=== PATIENT | female | born 1975 | race Caucasian/White ===

== ENCOUNTER → 2016-11-01 | Outpatient (CLI) | payer OTHER ==
[~2016-11-01] MED LIST: CALC500C70 PO; CETI10TA84 PO; CHOL100041 PO; CLON0.5T3 PO; CLX/20 PO; GADAVIST IV PRN; IBUP-1050 PO; LBT/300 PO; LBT200 PO; METH1LOZ PO
--- NOTE | 2016-11-01 09:22 | DIAGNOSTIC IMAGING REPORT ---
MRI OF THE BRAIN COMBO CLINICAL HISTORY: Visual disturbances. Anxiety. Depression. COMPARISON STUDY: No priors. TECHNIQUE: MRI of the brain was performed utilizing various T1 and T2-weighted sequences in the axial, sagittal, and coronal planes. Contrast-enhanced sequences were acquired following the administration of 11 cc of Gadavist. FINDINGS: Brain parenchyma: There is T2 signal abnormality identified throughout the parieto-occipital white matter. There is no significant mass effect, and no abnormal enhancement is seen on the postcontrast images. There is no hemorrhage or mass effect. There is no restricted diffusion typical for acute ischemia. Foci of T2 shine through are identified involving the left posterior periventricular white matter. No enhancing mass lesion is identified on the postcontrast images. No extra-axial fluid collection is seen. The cerebellar tonsils are normal in configuration. Ventricles, sulci, and cisterns: Normal in configuration. Pituitary and sella: Unremarkable. Intracranial vasculature: Normal flow voids are maintained at the skull base. Orbits: The bony orbits are grossly intact. Orbital contents are normal in appearance. Sinuses and mastoids: Trace mucosal thickening is seen within the maxillary antra. The remaining paranasal sinuses and the mastoid air cells are clear. Calvarium: Unremarkable. Cervical cord: Partially visualized cervical spinal cord is normal in morphology and signal intensity. IMPRESSION: 1. There is significant T2 signal abnormality identified involving the subcortical and periventricular white matter in the parieto-occipital region bilaterally. There is no associated abnormal enhancement or mass effect, and the appearance is highly concerning for the posterior reversible encephalopathy syndrome (PRES). Clinical correlation will be essential. 2. There is no hemorrhage, enhancing mass, or evidence of acute ischemia Electronically signed by: Stevenson Anderson M.D. 11/01/2016 9:20 AM Dictated Date/Time: 11/01/2016 9:11 AM
== END | disposition home or self-care (01) ==
LOC: C.MRIBC 07:21
PROVIDERS: ATTEND Family Medicine
DX: F41.3 Other mixed anxiety disorders (principal); R27.9 Unspecified lack of coordination; R25.1 Tremor, unspecified; H53.30 Unspecified disorder of binocular vision; E53.8 Deficiency of other specified B group vitamins; R94.02 Abnormal brain scan

== ENCOUNTER 2016-12-05 09:17 | Observation (INO) | payer OTHER ==
[~2016-12-05] VITALS: Ht 182.9 cm; Wt 113.6 kg
[~2016-12-05 09:17] MED LIST changes: -CALC500C70 PO; -CHOL100041 PO; -CLON0.5T3 PO; -CLX/20 PO; -GADAVIST IV PRN; -LBT200 PO
--- NOTE | 2016-12-05 09:56 | EMERGENCY ROOM VISIT NOTE ---
History Report prepared by Amado: Fernando Snow Under the Supervision of: Dr. Frank Fernando D.O. First contact with patient: 09:45 Chief Complaint: WEAKNESS Stated Complaint: DIFFICULTY WALKING Nursing Triage Summary: Bilateral leg weakness, difficulty ambulating, blurred vision. States sees a neurologist for the symptoms, but they are getting worse, was told to come to the ER by her phys. History of Present Illness The patient is a 41 year old female who presents to the Emergency Room with complaints of worsening neuro symptoms that started 4 months ago. She says that she was told by Dr. Patino (her primary care physician) to come to the ER if her condition worsened. She had an MRI 3 weeks ago, and has a neurology appointment scheduled on December 20. She was told that she would have a neurology consult here. The patient says that her main complaint is worsening weakness, which is worse on her right side. She says that her right foot drags. The patient says that she cannot walk well, read, write, or drive. She states that she could barely walk to the car this morning, and it took 2 people to help her get to the car. The patient's mother says that the patient has been walking on the outside edges of her feet, and the patient's veneer stapler strength is gone. The patient also notes that she has been having vision difficulties. She had symptoms like this in the past, and it was discovered that she had a B12 deficiency. Her symptoms last time did not progress this fast. Her recent B12 check was normal. She also takes a vitamin D supplement. The patient denies any numbness, headaches, neck stiffness, chest pain, or shortness of breath. She takes Labetalol, Clonazepam, and Celexa daily. The patient has no history of heart murmurs or thyroid issues. Source of History: patient, parent Onset: 4 months ago Position: other (global - weakness) Symptom Intensity: can hardly walk Timing: worsening Associated Symptoms: No SOB, No chest pain, No headache, No neck pain (or stiffness), No numbness Review of Systems See HPI for pertinent positives & negatives. A total of 10 systems reviewed and were otherwise negative. Past Medical & Surgical Medical Problems: (1) Essential (Primary) Hypertension (2) Reflux Esophagitis Surgical Problems: (1) History of gastric bypass Family History FH: cancer FH: diabetes mellitus FH: gallbladder disease FH: heart disease FH: hypertension Social History Smoking Status: Never Smoker Alcohol Use: occasionally Marital Status: Occupation Status: employed Current/Historical Medications Scheduled Calcium/Vitamin D (Os-Philipp 500 Plus D), 1 TAB PO DAILY Cholecalciferol (D 1000), 1,000 UNITS PO DAILY Citalopram (Citalopram Hydrobromide), 20 MG PO HS Clonazepam (Klonopin), 0.25 MG PO TID Ibuprofen (Advil), 400 MG PO UD Labetalol HCl (Labetalol HCl), 200 MG PO BID Methylcobalamin (Methyl B-12), 2,500 MCG PO DAILY Allergies Coded Allergies: Clarithromycin (Verified Allergy, Unknown, dental pain, 12/05/16) Cyclobenzaprine (Unverified Allergy, Unknown, heart issue, 12/05/16) Penicillins (Verified Allergy, Unknown, rash, 12/05/16) Sulfa Antibiotics (Verified Allergy, Unknown, rash, 12/05/16) Tramadol (Unverified Allergy, Unknown, heart stopped, 12/05/16) Physical Exam Vital Signs Date Time Temp Pulse Resp B/P Pulse Ox O2 Delivery O2 Flow Rate FiO2 12/05/16 11:14 56 16 168/104 98 Room Air 12/05/16 11:10 98 Room Air 12/05/16 10:31 67 12/05/16 09:20 36.6 85 18 136/99 96 Room Air Physical Exam GENERAL: Patient is awake, alert, and in no acute distress. Patient is resting comfortably and showing no signs of anxiety EYES: The conjunctivae are clear. The pupils are dilated but reactive to light bilaterally. EOMI. No ptosis with prolonged upward gaze. EARS, NOSE, MOUTH AND THROAT: The nose is without any evidence of any deformity. Mucous membranes are moist tongue is midline NECK: The neck is nontender and supple. RESPIRATORY: Normal respiratory effort is noted there is no evidence of wheezing rhonchi or rales CARDIOVASCULAR: Regular rate and rhythm noted, systolic murmur suggested on auscultation. GASTROINTESTINAL: The abdomen is soft. Bowel sounds are present in all quadrants. Abdomen is nontender MUSCULOSKELETAL/EXTREMITIES: There is no evidence of gross deformity full range of motion is noted in the hips and shoulders SKIN: There is no obvious evidence of any rash. There are no petechiae, pallor or cyanosis noted. NEUROLOGIC: Patient is awake alert and oriented x3. Patellar tendon reflexes 2 + bilaterally, veneer stapler strength diminished bilaterally. No drift in upper extremity but patient has splaying and extension of fingers noted. Slight drift in right lower extremity with inward turning of right foot, similar finding noted in left foot but not to same degree. Medical Decision & Procedures ER Provider Diagnostic Interpretation: X-ray results as stated below per interpretation by me and the radiologist. CHEST ONE VIEW PORTABLE CLINICAL HISTORY: ABDOMINAL PAIN/GI nausea COMPARISON STUDY: 06/01/2015 FINDINGS: The bones soft tissues and hemidiaphragms are normal. The cardiomediastinal silhouette is normal. The lungs are clear. The pulmonary vasculature is normal. IMPRESSION: Negative chest. Electronically signed by: Bhaskar Matson M.D. 12/05/2016 10:09 AM Dictated Date/Time: 12/05/2016 10:09 AM Laboratory Results 12/05/16 10:05 Red Blood Count 3.33, Mean Corpuscular Volume 106.3, Mean Corpuscular Hemoglobin 37.8, Mean Corpuscular Hemoglobin Concent 35.6, Mean Platelet Volume 9.3, Neutrophils (%) (Auto) 74.8, Lymphocytes (%) (Auto) 15.9, Monocytes (%) ( Auto) 6.4, Eosinophils (%) (Auto) 2.5, Basophils (%) (Auto) 0.4, Neutrophils # ( Auto) 3.87, Lymphocytes # (Auto) 0.82, Monocytes # (Auto) 0.33, Eosinophils # ( Auto) 0.13, Basophils # (Auto) 0.02 12/05/16 10:05 Test 12/05/16 10:05 12/05/16 10:50 12/05/16 12:30 White Blood Count 5.17 K/uL (4.8-10.8) Red Blood Count 3.33 M/uL (4.2-5.4) Hemoglobin 12.6 g/dL (12.0-16.0) Hematocrit 35.4 % (37-47) Mean Corpuscular Volume 106.3 fL (80-100) Mean Corpuscular Hemoglobin 37.8 pg (25-34) Mean Corpuscular Hemoglobin Concent 35.6 g/dl (32-36) Platelet Count 200 K/uL (130-400) Mean Platelet Volume 9.3 fL (7.4-10.4) Neutrophils (%) (Auto) 74.8 % Lymphocytes (%) (Auto) 15.9 % Monocytes (%) (Auto) 6.4 % Eosinophils (%) (Auto) 2.5 % Basophils (%) (Auto) 0.4 % Neutrophils # (Auto) 3.87 K/uL (1.4-6.5) Lymphocytes # (Auto) 0.82 K/uL (1.2-3.4) Monocytes # (Auto) 0.33 K/uL (0.11-0.59) Eosinophils # (Auto) 0.13 K/uL (0-0.5) Basophils # (Auto) 0.02 K/uL (0-0.2) RDW Standard Deviation 45.4 fL (36.4-46.3) RDW Coefficient of Variation 11.7 % (11.5-14.5) Immature Granulocyte % (Auto) 0.0 % Immature Granulocyte # (Auto) 0.00 K/uL (0.00-0.02) Anion Gap 8.0 mmol/L (3-11) Estimated GFR () 98.6 Estimated GFR (Non- 85.1 BUN/Creatinine Ratio 7.4 (10-20) Calcium Level 9.1 mg/dl (8.5-10.1) Total Bilirubin 1.5 mg/dl (0.2-1) Direct Bilirubin 0.7 mg/dl (0-0.2) Aspartate Amino Transf (AST/SGOT) 106 U/L (15-37) Alanine Aminotransferase (ALT/SGPT) 88 U/L (12-78) Alkaline Phosphatase 139 U/L (45-117) Troponin I < 0.015 ng/ml (0-0.045) Total Protein 7.0 gm/dl (6.4-8.2) Albumin 3.6 gm/dl (3.4-5.0) Lipase 78 U/L (73-393) Thyroid Stimulating Hormone (TSH) 2.680 uIu/ml (0.300-4.500) Free Thyroxine 1.20 ng/dl (0.80-1.60) Human Chorionic Gonadotropin, Qual NEG (NEG) Random Cortisol 18.66 mcg/dl Erythrocyte Sedimentation Rate 24 mm/hr (0-21) Prothrombin Time 11.4 SECONDS (9.0-12.0) Prothromb Time International Ratio 1.1 (0.9-1.1) Activated Partial Thromboplast Time 26.1 SECONDS (21.0-31.0) Partial Thromboplastin Ratio 1.0 C-Reactive Protein 0.33 mg/dl (0-0.29) Lyme Disease IgG Antibody NEG (NEG) Lyme Disease IgM Antibody NEG (NEG) Urine Color YELLOW Urine Appearance CLEAR (CLEAR) Urine pH 6.0 (4.5-7.5) Urine Specific Bland 1.010 (1.000-1.030) Urine Protein NEG (NEG) Urine Glucose (UA) NEG (NEG) Urine Ketones NEG (NEG) Urine Occult Blood NEG (NEG) Urine Nitrite NEG (NEG) Urine Bilirubin NEG (NEG) Urine Urobilinogen NEG (NEG) Urine Leukocyte Esterase MODERATE (NEG) Urine WBC (Auto) 5-10 /hpf (0-5) Urine RBC (Auto) 0-4 /hpf (0-4) Urine Hyaline Casts (Auto) 1-5 /lpf (0-5) Urine Epithelial Cells (Auto) >30 /lpf (0-5) Urine Bacteria (Auto) 1+ (NEG) Laboratory results per my review. Procedure Central Venous Catheter Indication: Sepsis. Catheter type: Triple lumen. Location: Left femoral vein. Verbal consent was obtained after the risks and benefits were explained, including but not limited to pneumothorax, hemothorax, vessel injury, bleeding, scarring, infection, pain, and bone/joint/nerve damage. At this time, the risks of the procedure are less than the risks of NOT performing the procedure. A time out was taken and the correct patient and site identified. The patient was placed in the supine position and the skin was prepped in the standard fashion with chlorhexidine and full sterile drapes applied. The proper landmarks were identified with ultrasound, anesthetized with 1% lidocaine without epinephrine, and the needle was inserted through the skin in the standard fashion. The needle was carefully advanced into blood vessel lumen under ultrasound guidance. The guidewire was placed uneventfully. The vessel is dilated and the catheter was placed. It was sutured into position. There was good blood return from all ports. The patient tolerated the procedure well and there were no complications. Post procedure x-ray was normal. ECG Indication: weakness Rate (beats per minute): 75 Rhythm: normal sinus Findings: no ectopy, other (no acute ST segment abnormalities) Comparison ECG Date: no prior available ED Course 0947: The patient was evaluated in room B5. A complete history and physical examination were performed. 1004: I discussed the patient with Dr. Marion ADAMSON neurology. 1020: I reevaluated the patient and she is resting. The patient verbally expressed understanding and agreement with the treatment plan. The patient will be evaluated for further treatment. 1036: I discussed the patient's case with Dr. Tony ADAMSON household appliance repairer. The patient will be evaluated for further management. Medical Decision Prior records/ancillary studies reviewed and summarized above. Nursing notes reviewed. Additional history obtained from family. Differential diagnosis: Etiologies such as metabolic, infection, hypo/hyperglycemia, electrolyte abnormalities, cardiac sources, intracerebral event, toxicologic, neurologic, as well as others were entertained. The patient is a 41-year-old female who presented to the emergency department for an evaluation of worsening neurologic problems. The patient was seen by her primary care physician for symptoms which have been ongoing for approximately 4 months. The patient had an MRI in October which was abnormal. The patient was set up with an appointment with neurology with the appointment was not until December and the patient was told if symptoms started to worsen she should go to the emergency department. The patient was starting to have severe symptoms including ambulatory dysfunction. Her mother states that she's been unable to ambulate without assistance over the last 24 hours. The patient's physical exam was mixed in that she had signs of muscle weakness which appeared to be distally in her upper as well as lower extremities. She had normal patellar tendon reflexes. She had no headache but her MRI the brain was questionable for PRES. I'm unsure if this fits with the patient's overall clinical picture. Her blood pressure was normal when she does not have a headache. I discussed this case with the patient's neurologist that she was scheduled to follow-up with. He is very concerned given the patient's MRI and physical exam findings and feels that she may need further workup and recommends inpatient evaluation. I discussed this case with the on-call [facility] hospitalist group. They have agreed to evaluate the patient in the emergency department for further management and disposition. Consults Time Called: 1000 Consulting Physician: Dr. Marion ADAMSON neurology Returned Call: [phone] I discussed the patient with Dr. Marion ADAMSON neurology. Additional Consults: Time Called: 1030 Consulted Physician: Dr. Tony ADAMSON household appliance repairer Returned Call: [phone] Additional Comments: I discussed the patient's case with Dr. Tony ADAMSON household appliance repairer. The patient will be evaluated for further management. Impression Primary Impression: Weakness Additional Impressions: Ambulatory dysfunction Abnormal MRI Scribe Attestation The scribe's documentation has been prepared under my direction and personally reviewed by me in its entirety. I confirm that the note above accurately reflects all work, treatment, procedures, and medical decision making performed by me. Departure Information Dispostion Being Evaluated By Hospitalist Referrals Frank Patino M.D. (PCP) Patient Instructions My [facility] Problem Qualifiers
--- NOTE | 2016-12-05 10:11 | DIAGNOSTIC IMAGING REPORT ---
CHEST ONE VIEW PORTABLE CLINICAL HISTORY: ABDOMINAL PAIN/GI nausea COMPARISON STUDY: 06/01/2015 FINDINGS: The bones soft tissues and hemidiaphragms are normal. The cardiomediastinal silhouette is normal. The lungs are clear. The pulmonary vasculature is normal. IMPRESSION: Negative chest. Electronically signed by: Bhaskar Matson M.D. 12/05/2016 10:09 AM Dictated Date/Time: 12/05/2016 10:09 AM
[2016-12-05 10:22] LABS: BASO % 0.4 %; BASO ABS # 0.02 K/uL (0-0.2); COMPLETE YES; EOS % 2.5 %; HEMATOCRIT 35.4 % (37-47); LYMPH % 15.9 %; LYMPH ABS # 0.82 K/uL (1.2-3.4); MEAN CELL VOLUME 106.3 fL (80-100); MEAN CORPUSCULAR HEMOGLOBIN 37.8 pg (25-34); MEAN CORPUSCULAR HGB CONC 35.6 g/dl (32-36); MEAN PLATELET VOLUME 9.3 fL (7.4-10.4); MONO % 6.4 %; NEUT % 74.8 %; PLATELET COUNT 200 K/uL (130-400); RED BLOOD COUNT 3.33 M/uL (4.2-5.4); WHITE BLOOD COUNT 5.17 K/uL (4.8-10.8)
[2016-12-05] MEDS ORDERED: CLX/20 PO (10:22)
[2016-12-05] MEDS ORDERED: CALC500C70 PO (10:22)
[2016-12-05] MEDS ORDERED: CHOL100041 PO (10:22)
[2016-12-05] MEDS ORDERED: LBT200 PO (10:22)
[2016-12-05] MEDS ORDERED: CLON0.5T3 PO (10:22)
[2016-12-05 10:40] LABS: ALT/SGPT 88 U/L (12-78); AST/SGOT 106 U/L (15-37); BLOOD UREA NITROGEN 6 mg/dl (7-18); BUN/CREATININE RATIO 7.4 (10-20); CALCIUM 9.1 mg/dl (8.5-10.1); CARBON DIOXIDE 26 mmol/L (21-32); CHLORIDE 103 mmol/L (98-107); CREATININE 0.86 mg/dl (0.60-1.20); GLUCOSE 102 mg/dl (70-99); POTASSIUM 4.3 mmol/L (3.5-5.1); SODIUM 137 mmol/L (136-145)
[2016-12-05 10:42] LABS: PREG INTERNAL NEGATIVE QC NEG CLEAR BACKGROUND; PREG INTERNAL POSITIVE QC POS CONTROL LINE
[2016-12-05 10:51] LABS: ALKALINE PHOSPHATASE 139 U/L (45-117)
[2016-12-05 11:06] LABS: INR 1.1 (0.9-1.1); PROTHROMBIN TIME (PATIENT) 11.4 SECONDS (9.0-12.0)
[2016-12-05 11:10] VITALS: O2SAT 98; Ht 182.9 cm; Wt 113.6 kg
--- NOTE | 2016-12-05 11:20 | History and Physical ---
History & Physical Date & Time of Service: December 05, 2016 at 11:18 Chief Complaint: Difficulty Walking Primary Care Physician: Frank Patino M.D. History of Present Illness Source: patient, parent 41F with a PMHx of HTN, Aortic Stenosis, Gastric Bypass, Depression, Anxiety, Vit B12 deficiency and previous cardiac arrest due to Flexeril and tramadol administration in [place] presents with an acute worsening over the past two days of gait instability, worsening of fine motor control in her hands, difficulty choosing her words, slow thinking and visions issues that has been present for the past [address] Patino as outpatient who ordered an MRI at [facility] on 11/01/2016. The MRI was suggestive of posterior reversible encephalopathy syndrome. She had an outpatient neurology follow up scheduled with Dr. Schultz on December 21. Pt has had similar symptoms to her current presentation approx 5 years ago in [place]. She saw 32 doctors for it and eventually her symptoms resolved with B12 administration. Her B12 was never low, but was on the low end of normal. Pt states that she needs to be in the high end of normal. Last B12 was measured to be >[address] Patino approx 7 weeks ago. She has received B12 shots from Dr. Patino recently. Pt reports 5 falls in the previous 2 days, she also needed help getting into the car today. Mom states that the pt's gait is now very odd, she walks on the outside of the toes. Pt denies any illnesses in June or May that preceded these symptoms. Pt is an [employer] student, according to mom has always been extremely intelligent. Pt was Cardiac Arrest History: Occured approximately 5 years ago in a cardiologists office. Performed CPR. Doctor was about to inform mom pt had before pt achieved ROSC. Pt was then thermally cooled. She underwent rehab for several months. According to mom pt returned to her baseline aside from her current episode. ROS: No fevers, no chills, no headache, +blurry vision +poor balance, no diarrhea, + lifetime history of intermittent vomiting. + finds it hard to read +difficulty dressing +hair loss PMHx: Gastric Bypass, HTN, Anxiety, Depression, Aortic Stenosis (Found by Dr. Centeno) PSHx: Gastric Bypass and Surgery for skin flap correction. Allergies: see above FamHx: No history of autoimmune processes other than sjogren's in a maternal aunt. SHx: Non smoker, no drugs, currently on disability. Family History FH: cancer FH: diabetes mellitus FH: gallbladder disease FH: heart disease FH: hypertension Social History Smoking Status: Never Smoker Marital Status: Occupational Status: disabled Multi-Drug Resistant Organisms History of MDRO: No Allergies Coded Allergies: Clarithromycin (Verified Allergy, Unknown, dental pain, 12/05/16) Cyclobenzaprine (Unverified Allergy, Unknown, heart issue, 12/05/16) Penicillins (Verified Allergy, Unknown, rash, 12/05/16) Sulfa Antibiotics (Verified Allergy, Unknown, rash, 12/05/16) Tramadol (Unverified Allergy, Unknown, heart stopped, 12/05/16) Home Medications Scheduled Calcium/Vitamin D (Os-Philipp 500 Plus D), 1 TAB PO DAILY Cholecalciferol (D 1000), 1,000 UNITS PO DAILY Citalopram (Citalopram Hydrobromide), 20 MG PO HS Clonazepam (Klonopin), 0.25 MG PO TID Ibuprofen (Advil), 400 MG PO UD Labetalol HCl (Labetalol HCl), 200 MG PO BID Methylcobalamin (Methyl B-12), 2,500 MCG PO DAILY Review of Systems Constitutional: No chills, No fever Respiratory: No dyspnea on exertion, No shortness of breath, No sputum, No wheezing Cardiovascular: No chest pain Genitourinary - Female: No dysuria, No urinary frequency, No urinary incontinence, No urinary retention, No urinary urgency Neurologic: + balance problems, + memory loss, No numbness/tingling Physical Exam Vital Signs Date Time Temp Pulse Resp B/P Pulse Ox O2 Delivery O2 Flow Rate FiO2 12/05/16 10:31 67 12/05/16 09:20 36.6 85 18 136/99 96 Room Air General Appearance: WD/WN, + obese Head: normocephalic, atraumatic Eyes: normal inspection, EOMI, + pertinent finding (Pt was able to read the words on the television screen without difficulty "FOOD" and "GCI") ENT: normal ENT inspection, + pertinent finding (uvula midline, tongue midline) Neck: supple, no adenopathy Respiratory/Chest: chest non-tender, lungs clear, normal breath sounds, no respiratory distress, no accessory muscle use Cardiovascular: regular rate, rhythm, no edema, no gallop, no JVD, normal peripheral pulses, + pertinent finding (systolic ejection murmur) Abdomen/GI: normal bowel sounds, non tender, soft, no organomegaly, no pulsatile mass Back: normal inspection, no CVA tenderness Extremities/Musculoskelatal: + pertinent finding (5/5 strength in the upper and lower extremities, sensation to light touch intact over the upper and lower extremities, pt's feet are inverted bilaterally at rest, pt is fanning her fingers inadvertantly at rest, she is able to close her fingers. ) Neurologic/Psych: facialist II-XII nml as tested, no motor/sensory deficits, alert, normal mood/affect, normal reflexes (2+ patellar relfexes bilaterally, POSITIVE babinski sign, ), oriented x 3 Diagnostics Laboratory Results Results Past 24 Hours Test 12/05/16 10:05 12/05/16 10:50 Range/Units White Blood Count 5.17 4.8-10.8 K/uL Red Blood Count 3.33 4.2-5.4 M/uL Hemoglobin 12.6 12.0-16.0 g/dL Hematocrit 35.4 37-47 % Mean Corpuscular Volume 106.3 80-100 fL Mean Corpuscular Hemoglobin 37.8 25-34 pg Mean Corpuscular Hemoglobin Concent 35.6 32-36 g/dl Platelet Count 200 130-400 K/uL Mean Platelet Volume 9.3 7.4-10.4 fL Neutrophils (%) (Auto) 74.8 % Lymphocytes (%) (Auto) 15.9 % Monocytes (%) (Auto) 6.4 % Eosinophils (%) (Auto) 2.5 % Basophils (%) (Auto) 0.4 % Neutrophils # (Auto) 3.87 1.4-6.5 K/uL Lymphocytes # (Auto) 0.82 1.2-3.4 K/uL Monocytes # (Auto) 0.33 0.11-0.59 K/uL Eosinophils # (Auto) 0.13 0-0.5 K/uL Basophils # (Auto) 0.02 0-0.2 K/uL RDW Standard Deviation 45.4 36.4-46.3 fL RDW Coefficient of Variation 11.7 11.5-14.5 % Immature Granulocyte % (Auto) 0.0 % Immature Granulocyte # (Auto) 0.00 0.00-0.02 K/uL Sodium Level 137 136-145 mmol/L Potassium Level 4.3 3.5-5.1 mmol/L Chloride Level 103 98-107 mmol/L Carbon Dioxide Level 26 21-32 mmol/L Anion Gap 8.0 3-11 mmol/L Blood Urea Nitrogen 6 7-18 mg/dl Creatinine 0.86 0.60-1.20 mg/dl Estimated GFR () 98.6 Estimated GFR (Non- 85.1 BUN/Creatinine Ratio 7.4 10-20 Random Glucose 102 70-99 mg/dl Calcium Level 9.1 8.5-10.1 mg/dl Total Bilirubin 1.5 0.2-1 mg/dl Direct Bilirubin 0.7 0-0.2 mg/dl Aspartate Amino Transf (AST/SGOT) 106 15-37 U/L Alanine Aminotransferase (ALT/SGPT) 88 12-78 U/L Alkaline Phosphatase 139 45-117 U/L Troponin I < 0.015 0-0.045 ng/ml Total Protein 7.0 6.4-8.2 gm/dl Albumin 3.6 3.4-5.0 gm/dl Lipase 78 73-393 U/L Thyroid Stimulating Hormone (TSH) 2.680 0.300-4.500 uIu/ml Free Thyroxine 1.20 0.80-1.60 ng/dl Human Chorionic Gonadotropin, Qual NEG NEG Random Cortisol 18.66 mcg/dl Prothrombin Time 11.4 9.0-12.0 SECONDS Prothromb Time International Ratio 1.1 0.9-1.1 Activated Partial Thromboplast Time 26.1 21.0-31.0 SECONDS Partial Thromboplastin Ratio 1.0 Diagnostic Radiology CHEST ONE VIEW PORTABLE CLINICAL HISTORY: ABDOMINAL PAIN/GI nausea COMPARISON STUDY: 06/01/2015 FINDINGS: The bones soft tissues and hemidiaphragms are normal. The cardiomediastinal silhouette is normal. The lungs are clear. The pulmonary vasculature is normal. IMPRESSION: Negative chest. EKG Normal sinus rhythm Cannot rule out Anterior infarct , age undetermined Abnormal ECG No previous ECGs available Impression Assessment and Plan 41F with a PMHx of B12 deficiency, gastric bypass, cardiac arrest ([place]) 2/ 2 to medications, HTN, Anxiety, Depression, Aortic Stenosis presents with an acute 2 day exacerbation of chronic non specific neurological symptoms including gait instability, poor fine motor control, decreased vision and difficulty choosing words. MRI in 11/01/2016 showed a concern for posterior reversible encephalopathy syndrome (PRES). She has had similar symptoms in the past that resolved with B12 administration despite her B12 level being low normal. She recently had B12 shots from Dr. Patino's office. Neurological Symptoms, PRES vs Encephalitis vs B12/Folate Deficiency vs Multiple Sclerosis - Non specific clinical picture. - Greatly appreciate neuro recommendations. - Will re-order B12 level, order Folate Level, RPR antibody, ESR, CRP and Lyme. - Consider B12 injection, Lumbar Puncture and re-imaging of brain. Macrocytosis MCV > 100 Vit B12 >2000 Folate is low, will replete with 2mg IV now and 1mg IV QAM. HTN - Continue with home med Labetalol Depression and Anxiety - continue with home med Celexa and Clonazepam. DVT Proph - SCDS until intracranial bleed is ruled out. (low prob) Dispo Med Surg, Full Diet, Full Code Resident Involvement: Resident Care Provided Care Provided: Adult Hospital Medicine History Resident Physician Supervision Note: I was present with Dr. Beckwith during the history and exam. I discussed the case with the resident and agree with the findings and plan as documented in the note. Any exceptions or clarifications are listed here. 41 y/o female h/o similar episode w/ B12 deficiency w/ h/o pernicious anemia and gastric bypass presents with progressive weakness. Diffusely, but mostly with coordinated movements - walking, small surface manipulation (texting), as well as reading. With the reading, feels like she can't focus on small print close up. For texting, has been using speech which has worked fine. Ambulation zaldivar, feels her ankles are turned in and cannot get her feet to stay underneath her. Symptoms progressively worsened the last few wks. No neuro work up as yet ( scheduled for December). Labs reviewed from 7 wks ago w/ nl TSH and high B12. Reports no SOB, CP, palpitations, lightheadedness, difficulty speaking or swallowing, sensation changes. General Appearance: WD/WN, no apparent distress Neck: non-tender, full range of motion, supple Respiratory: chest non-tender, lungs clear, normal breath sounds, no respiratory distress Cardiovascular: normal peripheral pulses, regular rate, rhythm, no edema, no murmur Gastrointestinal: normal bowel sounds, non tender, soft, no organomegaly Extremities: normal range of motion, non-tender, normal inspection, no pedal edema, other (weakness of right plantarflexion but not dorsiflexion. str 5/5 b/ l lumbercles, UE, proximal LE, face, neck) Neurologic/Psychiatric: alert, normal mood/affect, oriented x 3, abnormal facialist II-XII (unable to track smoothly or accomodate well. PERRL) Skin Characteristics: normal color, warm/dry, cyanosis Assessment/Plan 41 y/o female h/o B12 defncy, gastric bypass, [place] , HTN, anxiety/depression p/w acute on chronic worsening weakness Worsening weakness - multiple potential causes which are primarily central/ metabolic in nature w/ abn imaging recently (?stable from previous) - obtain outpatient records through PCP office re: previous scans, ideally w/ old scan for comparison - neurology consulted for patient, recommendations appreciated - lab studies as noted above - would strongly consider LP for further evaluation under IR guidance Macrocytic anemia - mild w/ nl B12 but with low folate at present - supplementation as noted HTN - continue labetolol, can add hydralazine PRN if needed Depression/anxiety - conitnue Celexa and clonazepam DVT PPX - SCD
[2016-12-05] MEDS ORDERED: MAGNESIUM HYDROXIDE SUSP 30 ML UDC PO PRN (12:15)
[2016-12-05] MEDS ORDERED: ACETAMINOPHEN 325 MG TAB PO PRN (12:15)
[2016-12-05] MEDS ORDERED: ALUMINUM/MAGNESIUM/SIMETH (MAALOX MAX) 30 ML UDC PO PRN (12:15)
[2016-12-05] MEDS ORDERED: ONDANSETRON INJ 2 MG/ML 2 ML VIAL IV PRN (12:15)
[2016-12-05] MEDS ORDERED: POLYETHYLENE (MIRALAX) 17 GM PACK PO PRN ×2 (12:15→12:45)
[2016-12-05 12:44] LABS: URINE APPEARANCE CLEAR (CLEAR); URINE BILIRUBIN NEG (NEG); URINE COLOR YELLOW; URINE EPITHELIAL CELL AUTO >30 /lpf (0-5); URINE NITRITE NEG (NEG); UROBILINOGEN NEG (NEG)
[2016-12-05 12:59] LABS: MANUAL MICROSCOPIC REQUIRED? NO; REVIEW REQ? NO
[2016-12-05 13:27] LABS: LYME DISEASE AB IGM NEG (NEG)
[2016-12-05 13:30] LABS: LYME DISEASE AB IGG NEG (NEG)
[2016-12-05] MEDS ORDERED: IV FLUIDS COMPLETED PRN (13:45)
[2016-12-05 14:56] VITALS: BP 123/86; PULSE 80; TEMP 36.7; O2SAT 97
[2016-12-05] MEDS ORDERED: FOLIC ACID IV ONE (16:15)
[2016-12-05] MEDS: CLONAZEPAM 0.5 MG TAB PO SCH ×2 (16:24→21:04)
[2016-12-05] MEDS: CITALOPRAM 20 MG TAB PO SCH (21:05)
[2016-12-05] MEDS: LABETALOL HCL 200 MG TAB PO SCH (21:06)
[2016-12-05 23:12] VITALS: BP 129/87; PULSE 74; TEMP 36.7; O2SAT 97
[2016-12-06] VITALS: O2SAT 98
--- NOTE | 2016-12-06 07:55 | Family Medicine Progress Note ---
Progress Note Date of Service December 06, 2016. Subjective Pt evaluation today including: conversation w/ patient, physical exam, chart review, lab review The patient was seen and examined at bedside. Pt reports sleeping well and feels much better. Denies having any pain. Still walking with difficulty. Eating and urinating well. Plan of care was described to the patient and all questions were answered. Constitutional: No chills, No fever Respiratory: No cough, No shortness of breath, No sputum, No wheezing Cardiovascular: No chest pain Abdomen: No diarrhea, No nausea, No pain, No vomiting Objective Physical Exam General Appearance: WD/WN, no apparent distress, + obese Neck: supple Respiratory/Chest: chest non-tender, lungs clear, normal breath sounds, no respiratory distress, no accessory muscle use Cardiovascular: regular rate, rhythm, no edema, no gallop, no JVD, no murmur Abdomen: normal bowel sounds, non tender, soft Extremities: normal range of motion, non-tender, normal inspection, no calf tenderness, + pertinent finding (ankles are still flexed on position. ) Neurologic/Psychiatric: normal mood/affect, oriented x 3, + pertinent finding ( pt reports feeling more 'oriented' than previous day, speech is normal, affect is good. Gait is slow, pt requires the assistance of a walker. ) Skin: no rash Assessment and Plan 41F with a PMHx of B12 deficiency, gastric bypass, cardiac arrest ([place] x 5 years ago) 2/2 to meds (flexiril, ?tramadol), HTN, Anxiety, Depression, Aortic Stenosis presents with an acute 2 day exacerbation of chronic non specific neurological symptoms including gait instability, poor fine motor control, decreased vision and difficulty choosing words. MRI in 11/01/2016 showed a concern for posterior reversible encephalopathy syndrome (PRES). She has had similar symptoms in the past that resolved with B12 administration despite her B12 level being low normal. She recently had B12 shots from Dr. Patino's office. Folic acid was found to be decreased, pt was given IV folic acid. Symptoms have improved. Neurological Symptoms, PRES vs Encephalitis vs B12/Folate Deficiency vs Multiple Sclerosis - Non specific clinical picture. - Neuro recommendations: Needs MRI Brain, cervical spine, thoracic spine, and lumbar spine, all w/wo contrast. May need another LP, will review imaging first. Will need outpatient EMG/NCS to look for associated neuropathy. Needs outpatient ophthalmology evaluation. Would also like her to be evaluated at [facility] or other tertiary center given the complexity of her case, can probably be arranged as an outpatient, unless her condition deteriorates, requiring transfer. - B12 >2000, Folate Level (low), RPR negative, ESR (24 - mildly elevated), CRP ( 0.33 - mildly elevated) and Lyme (negative). - c/w IV 1mg Folic Acid. - Pt consented to HIV add on test in AM. - Will order imaging as per neuro recs. - PT and OT recs appreciated - continued inpatient rehab, and outpatient depending on how pt does. Macrocytosis MCV > 100 Vit B12 >2000 Folate is low, will replete [id number] IV QAM daily. HTN - Continue with home med Labetalol Depression and Anxiety - continue with home med Celexa and Clonazepam. DVT Proph - SCDs until intracranial bleed is ruled out. (low prob) Dispo Med Surg, Full Diet, Full Code Resident Involvement: Resident Care Provided Care Provided: Adult Hospital Medicine History Resident Physician Supervision Note: I was present with Dr. Beckwith during the history and exam. I discussed the case with the resident and agree with the findings and plan as documented in the note. Any exceptions or clarifications are listed here. Pt feels more 'mentally clear' today after folate supplementation, but feels that her weakness is generally stable from previous. Has persistent aching pain of the right lateral ribs and left shoulder c/w site of impact. Reports no SOB, swallowing difficulty, sensation changes, incontinence. Reviewed potential causes of folate deficiency - h/o gastric bypass with small meals, though with variety and consumption of green leafy vegetables and sources rich in folate. No MVI supplementation of folate. h/o pernicious anemia w/ B12 supplementation. Denies any recent alcohol use (since being on clonazepam ), though was a regular [employer] drinker (1-3 'small' drinks 3-4 nights per week) previously. General Appearance: WD/WN, no apparent distress Respiratory: chest non-tender, lungs clear, normal breath sounds, no respiratory distress Cardiovascular: normal peripheral pulses, regular rate, rhythm, no edema, no murmur Gastrointestinal: normal bowel sounds, non tender, soft, no organomegaly Neurologic/Psychiatric: doughnut maker II-XII nml as tested, alert, normal mood/affect, oriented x 3, other (str 5/5 b/l LE including ankles and arms) Assessment/Plan 41 y/o female h/o B12 defncy, gastric bypass, [place] , HTN, anxiety/depression p/w acute on chronic worsening weakness Acute on chronic somatic weakness - neurology consulted, input appreciated - MRI spinal column, PT/OT consult, t/c LP if no overt cause on imaging Macrocytic anemia w/ folate deficiency - s/p supplementation - trend CBC qAM Transaminitis - stable from previous, h/o MONTERO w/ similar elevations previously. Trend CMP qAM HTN - continue labetolol, can add hydralazine PRN if needed Depression/anxiety - conitnue Celexa and clonazepam DVT PPX - SCD
[2016-12-06 07:58] VITALS: BP 146/97; PULSE 77; TEMP 36.8; O2SAT 95
[2016-12-06 08:00] VITALS: O2SAT 95
[2016-12-06] MEDS: CLONAZEPAM 0.5 MG TAB PO SCH ×3 (08:16→20:10)
[2016-12-06] MEDS: CHOLECALCIFEROL 1000 INTER.UNIT TAB PO SCH (08:18)
[2016-12-06] MEDS: CALCIUM 600MG + VIT D 400 IU TAB PO SCH (08:18)
[2016-12-06] MEDS: LABETALOL HCL 200 MG TAB PO SCH ×2 (08:18→20:10)
[2016-12-06] MEDS: FoLIC ACID INJ 1 MG in SYRINGE 9.8 ML IV SCH (08:18)
[2016-12-06] MEDS ORDERED: METHYLCOBALAMIN PO SCH (09:00)
[2016-12-06 09:23] LABS: HEMATOCRIT 38.6 % (37-47); MEAN CELL VOLUME 108.4 fL (80-100); MEAN CORPUSCULAR HEMOGLOBIN 38.2 pg (25-34); MEAN CORPUSCULAR HGB CONC 35.2 g/dl (32-36); MEAN PLATELET VOLUME 9.9 fL (7.4-10.4); PLATELET COUNT 226 K/uL (130-400); RED BLOOD COUNT 3.56 M/uL (4.2-5.4); WHITE BLOOD COUNT 5.18 K/uL (4.8-10.8)
[2016-12-06 09:47] LABS: BUN/CREATININE RATIO 8.1 (10-20); CREATININE 0.99 mg/dl (0.60-1.20); POTASSIUM 3.7 mmol/L (3.5-5.1)
[2016-12-06 09:50] LABS: ALB/GLOB RATIO 0.9 (0.9-2)
[2016-12-06 10:12] LABS: CALCIUM 9.4 mg/dl (8.5-10.1)
--- NOTE | 2016-12-06 10:46 | Neurology Consultation ---
Neurology Consultation Date of Consultation: December 06, 2016. Attending Physician: Amos Parry MD Primary Care Physician: Frank Patino M.D. Reason for Consultation: abnormal MRI, weakness History of Present Illness Source: patient, hospital records 41 year old female with a chief complaint of weakness, chronic issue, began about five years ago and is associated with bilateral vision loss, improved with vitamin B12 supplementation, however, began experiencing symptom recurrence about three months ago, getting progressively worse, difficulty walking, right leg feels weak. Also c/o poor concentration which has been getting progressively worse. PMH notable for pernicious anemia, liver failure, h/o gastric bypass, cardiac arrest, has had extensive evaluation at a hospital in [place], recalls having LP and neurologic assessment as well. Brain MRI images reviewed, reveals extensive, confluent, posterior, periventricular white matter increased T2/FLAIR signal. 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 drinks one gin and tonic per day Marital Status: Occupation Status: disabled Allergies Coded Allergies: Clarithromycin (Verified Allergy, Unknown, dental pain, 12/05/16) Cyclobenzaprine (Unverified Allergy, Unknown, heart issue, 12/05/16) Penicillins (Verified Allergy, Unknown, rash, 12/05/16) Sulfa Antibiotics (Verified Allergy, Unknown, rash, 12/05/16) Tramadol (Unverified Allergy, Unknown, heart stopped, 12/05/16) Current Inpatient Medications Current Inpatient Medications Medications (Trade) Dose Ordered Sig/Mariah Route Start Time Stop Time Status Last Admin Dose Admin Acetaminophen (Tylenol Tab) 650 mg Q4H PRN PO 12/05/16 12:15 01/04/17 12:14 Al Hydrox/Mg Hydrox/Simethicone (Maalox Max Susp) 15 ml Q4H PRN PO 12/05/16 12:15 01/04/17 12:14 Magnesium Hydroxide (Milk Of Magnesia Susp) 30 ml Q6H PRN PO 12/05/16 12:15 01/04/17 12:14 Ondansetron HCl (Zofran Inj) 4 mg Q6H PRN IV 12/05/16 12:15 01/04/17 12:14 Calcium/Vitamin D (Caltrate Plus Tab) 1 tab DAILY PO 12/06/16 09:00 01/05/17 08:59 12/06/16 08:18 1 TAB Citalopram Hydrobromide (celeXA TAB) 20 mg HS PO 12/05/16 21:00 01/04/17 20:59 12/05/16 21:05 20 MG Clonazepam (Klonopin Tab) 0.25 mg TID PO 12/05/16 14:00 01/04/17 13:59 12/06/16 08:16 0.25 MG Miscellaneous Information (Order Awaiting Action) 1 ea QS N/A 12/05/16 16:00 01/04/17 15:59 Labetalol HCl (Normodyne Tab) 200 mg BID PO 12/05/16 21:00 01/04/17 20:59 12/06/16 08:18 200 MG Cholecalciferol (Vitamin D Tab) 1,000 inter.unit DAILY PO 12/06/16 09:00 01/05/17 08:59 12/06/16 08:18 1,000 INTER.UNIT Polyethylene (Miralax Powder Packet) 17 gm DAILY PRN PO 12/05/16 12:45 01/04/17 12:14 Miscellaneous 1 ea 1 ea PRN PRN N/A 12/05/16 13:45 12/05/17 13:44 Folic Acid/Syringe (Folvite Inj/ Syringe) 10 ml @ 5 mls/min Q24H IV 12/06/16 09:00 01/05/17 08:59 12/06/16 08:18 5 MLS/MIN Review of Systems A full 10 point review of systems was obtained from this patient with pertinent positives and negatives described in the history of present illness. All other systems reviewed and are negative. Physical Exam Vital Signs (Past 24 Hrs): Date Time Temp Pulse Resp B/P Pulse Ox O2 Delivery O2 Flow Rate FiO2 12/06/16 07:58 36.8 77 20 146/97 95 Room Air 12/06/16 00:00 98 Room Air 12/05/16 23:12 36.7 74 18 129/87 97 Room Air 12/05/16 16:10 Room Air 12/05/16 14:56 36.7 80 18 123/86 97 Room Air 12/05/16 14:37 Room Air 12/05/16 11:14 56 16 168/104 98 Room Air 12/05/16 11:10 98 Room Air 12/05/16 10:31 67 The patient is a well-developed, middle-aged female, no acute distress. She is alert and oriented to person place and time. Attention and concentration normal. Recent and remote memory intact. She is able to name objects and repeat phrases. She read simple text without difficulty and correctly describes a complex picture. Gen. fund of knowledge and vocabulary normal. Visual christiansen full to confrontation. Visual acuity mildly diminished bilaterally. The pupils are equal, round, and react sluggishly to light. There appears to be bilateral afferent pupillary defects with swinging flashlight test. Eye movements normal. No nystagmus. No ophthalmoplegia. Facial sensation intact bilaterally. Facial strength normal and symmetric. Palate elevates to midline. Tongue protrudes to midline. Hearing intact to finger rub bilaterally. Shoulder shrug strength intact bilaterally. Sensation diminished vibration at the ankles. Light touch and temperature sensation intact. There is bilateral dysmetria with testing of finger to nose and heel to murillo although the right lower extremity is most prominently affected. Deep tendon reflexes are 2+ for the arms and left leg, 3+ at the right patella and right Achilles tendon. The right plantar response is upgoing. The left plantar response is downgoing. Ophthalmoscopic examination reveals bilateral optic nerve pallor with poor differentiation of the optic nerve head on the left. The posterior elements otherwise appear normal. No hemorrhages. Carotid pulses normal bilaterally, no bruits. Musculoskeletal examination reveals intact strength for all 4 limbs proximally and distally. Muscle tone is increased for the distal right lower limb with a tendency for the right foot and ankle to assume a dystonic inverted posture with movement. There is no atrophy. No tremors or fasciculations are observed. Gait and station appear ataxic. bilateral APD's, optic nerves pale, eye movements normal, no nystagmus, bilateral dysmetria with finger to nose, bilateral UE outward drift, right Babinski, mild dystonia right foot, gait ataxic Laboratory Results Past 24 Hours: 12/06/16 08:56 12/06/16 08:56 Test 12/05/16 10:50 12/05/16 12:30 12/05/16 14:10 12/06/16 08:56 Erythrocyte Sedimentation Rate 24 mm/hr (0-21) Prothrombin Time 11.4 SECONDS (9.0-12.0) Prothromb Time International Ratio 1.1 (0.9-1.1) Activated Partial Thromboplast Time 26.1 SECONDS (21.0-31.0) Partial Thromboplastin Ratio 1.0 C-Reactive Protein 0.33 mg/dl (0-0.29) Lyme Disease IgG Antibody NEG (NEG) Lyme Disease IgM Antibody NEG (NEG) Urine Color YELLOW Urine Appearance CLEAR (CLEAR) Urine pH 6.0 (4.5-7.5) Urine Specific [place] 1.010 (1.000-1.030) Urine Protein NEG (NEG) Urine Glucose (UA) NEG (NEG) Urine Ketones NEG (NEG) Urine Occult Blood NEG (NEG) Urine Nitrite NEG (NEG) Urine Bilirubin NEG (NEG) Urine Urobilinogen NEG (NEG) Urine Leukocyte Esterase MODERATE (NEG) Urine WBC (Auto) 5-10 /hpf (0-5) Urine RBC (Auto) 0-4 /hpf (0-4) Urine Hyaline Casts (Auto) 1-5 /lpf (0-5) Urine Epithelial Cells (Auto) >30 /lpf (0-5) Urine Bacteria (Auto) 1+ (NEG) Vitamin B12 Level > 2000 pg/mL (211-911) Folate 1.72 ng/mL (>5.38) Red Blood Count 3.56 M/uL (4.2-5.4) Mean Corpuscular Volume 108.4 fL (80-100) Mean Corpuscular Hemoglobin 38.2 pg (25-34) Mean Corpuscular Hemoglobin Concent 35.2 g/dl (32-36) RDW Standard Deviation 47.6 fL (36.4-46.3) RDW Coefficient of Variation 12.0 % (11.5-14.5) Mean Platelet Volume 9.9 fL (7.4-10.4) Anion Gap 8.0 mmol/L (3-11) Est Creatinine Clear Calc Drug Dose 107.6 ml/min Estimated GFR () 83.2 Estimated GFR (Non- 71.8 BUN/Creatinine Ratio 8.1 (10-20) Total Bilirubin 1.6 mg/dl (0.2-1) Aspartate Amino Transf (AST/SGOT) 105 U/L (15-37) Alanine Aminotransferase (ALT/SGPT) 89 U/L (12-78) Alkaline Phosphatase 152 U/L (45-117) Total Protein 7.7 gm/dl (6.4-8.2) Albumin 3.7 gm/dl (3.4-5.0) Globulin 4.0 gm/dl (2.5-4.0) Albumin/Globulin Ratio 0.9 (0.9-2) Impression 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 These abnormalities are likely chronic and relate to her reported history of pernicious anemia and cardiac arrest. Other nutrient deficiencies and mitochondrial disorders not excluded. May also have combined systems degeneration of the spinal cord. It is not clear to me why her condition has been deteriorating over the past few months, although she reports stopping B12 injection about one year ago and has been taking only oral supplementation. Moderate persistent alcohol consumption could be a factor as well. Plan Needs MRI Brain, cervical spine, thoracic spine, and lumbar spine, all w/wo contrast. May need another LP, will review imaging first. Will need outpatient EMG/NCS to look for associated neuropathy. Needs outpatient ophthalmology evaluation. Would also like her to be evaluated at [facility] or other tertiary center given the complexity of her case, can probably be arranged as an outpatient, unless her condition deteriorates, requiring transfer.
[2016-12-06 13:12] VITALS: BP 144/104
[2016-12-06] MEDS ORDERED: NURSING VERBAL MED ORDER ONE ×2 (14:15→19:00)
[2016-12-06] MEDS: IBUPROFEN 200 MG TAB PO PRN (14:28)
[2016-12-06 15:16] VITALS: BP 139/95; PULSE 71; TEMP 36.9; O2SAT 97
[2016-12-06] MEDS ORDERED: LORAZEPAM 0.5 MG TAB PO SCH (19:15)
[2016-12-06] MEDS: CITALOPRAM 20 MG TAB PO SCH (20:10)
[2016-12-06] MEDS ORDERED: GADAVIST IV PRN (23:00)
[2016-12-07 03:43] LABS: RAPID PLASMA REAGIN NONREACTIVE (NONREACT)
[2016-12-07 07:00] LABS: HEMATOCRIT 35.6 % (37-47); MEAN CELL VOLUME 108.2 fL (80-100); MEAN CORPUSCULAR HGB CONC 35.1 g/dl (32-36); MEAN PLATELET VOLUME 9.6 fL (7.4-10.4); PLATELET COUNT 208 K/uL (130-400); RED BLOOD COUNT 3.29 M/uL (4.2-5.4); WHITE BLOOD COUNT 6.28 K/uL (4.8-10.8)
[2016-12-07 07:34] LABS: BUN/CREATININE RATIO 10.9 (10-20); CALCIUM 8.9 mg/dl (8.5-10.1); CREATININE 0.89 mg/dl (0.60-1.20); POTASSIUM 4.1 mmol/L (3.5-5.1)
--- NOTE | 2016-12-07 07:37 | Family Medicine Progress Note ---
Progress Note Date of Service December 07, 2016. Subjective Pt evaluation today including: conversation w/ patient, physical exam, chart review, lab review The patient was seen and examined at bedside. PT states that she is feeling the same as the previous day - still cannot write and has severe gait imbalances. 5pm: Discussed transfer to [place] with patient. She was upset that she would have to go by ambulance. Her boyfriend was going to take her and they were planning on stopping at her mom because she has a shower with many handles and pt wanted a shower. Patient is resting comfortably in bed. Denies having any pain. Eating and urinating well. Plan of care was described to the patient and all questions were answered. Constitutional: + weakness, No chills, No fever, No sweats, No weight loss ENT: No hearing loss Respiratory: No cough, No shortness of breath, No sputum, No wheezing Cardiovascular: No chest pain Abdomen: No diarrhea, No nausea, No pain, No vomiting Objective Physical Exam General Appearance: WD/WN, + obese, + pertinent finding (similar exam to previous day) Eyes: EOMI Respiratory/Chest: chest non-tender, lungs clear, normal breath sounds, no respiratory distress, no accessory muscle use Cardiovascular: regular rate, rhythm, no edema, no gallop, no JVD, no murmur Abdomen: normal bowel sounds, non tender, soft, no organomegaly, no pulsatile mass Extremities: + pertinent finding (inward facing feet, slow gait, Romberg sign positive, Babinski sign positive bilaterally, equal sensation to light touch over the upper and lower extremities, 5/5 muscle power and symmetric in upper and lower extremities, uvula midline, should shrug intact, face is symmetric.) Neurologic/Psychiatric: alert, normal mood/affect, oriented x 3 Assessment and Plan 41F with a PMHx of B12 deficiency, gastric bypass, cardiac arrest ([place] x 5 years ago) 2/2 to meds (flexiril, ?tramadol), HTN, Anxiety, Depression, Aortic Stenosis presents with an acute 2 day exacerbation of chronic non specific neurological symptoms including gait instability, poor fine motor control, decreased vision and difficulty choosing words. MRI in 11/01/2016 showed a concern for posterior reversible encephalopathy syndrome (PRES). She has had similar symptoms in the past that resolved with B12 administration despite her B12 level being low normal. She recently had B12 shots from Dr. Patino's office. Folic acid was found to be decreased, pt was given IV folic acid. Symptoms are back to when the pt presented. Will transfer to [facility] for need for more acute care. Accepting Physician is Dr. Curile. We are arranging transfer tomorrow (Saturday) AM. Neurological Symptoms, PRES vs Encephalitis vs B12/Folate Deficiency - Non specific clinical picture. 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 Thoracic, lumbar and cervical spine: . No spinal cord abnormalities observed. Differentials: adult onset leukodystrophy her reported history of pernicious anemia may also be contributory as well as the reported history of cardiac arrest. Mitochondrial disorders remain in the differential. Will need outpatient EMG/NCS to look for associated neuropathy. Needs outpatient ophthalmology evaluation. Would also like her to be evaluated at [facility] or other tertiary center given the complexity of her case, can probably be arranged as an outpatient, unless her condition deteriorates, requiring transfer. - B12 >2000, Folate Level (low), RPR negative, ESR (24 - mildly elevated), CRP ( 0.33 - mildly elevated) and Lyme (negative), HIV (negative), Thiamine (pending) - c/w IV 1mg Folic Acid. - PT and OT recs appreciated - continued inpatient rehab, and outpatient depending on how pt does. Macrocytosis MCV > 100 Vit B12 >2000 Folate is low, will replete [id number] IV QAM daily. HTN - Continue with home med Labetalol Depression and Anxiety - continue with home med Celexa and Clonazepam. DVT Proph - SCDs until intracranial bleed is ruled out. (low prob) Dispo Med Surg, Full Diet, Full Code Resident Involvement: Resident Care Provided Care Provided: Adult Hospital Medicine History Resident Physician Supervision Note: I was present with Dr. Beckwith during the history and exam. I discussed the case with the resident and agree with the findings and plan as documented in the note. Any exceptions or clarifications are listed here. Pt reports improvement in general weakness and function today - was out of bed with walker last night to rest room without issue and looking forward to working with PT further. Some mild stiffness of the neck and aching at the impact sites from recent fall today which are stable/improved. Able to read somewhat better today than previous, which is a positive step. General Appearance: WD/WN, no apparent distress Neck: non-tender, full range of motion, supple Respiratory: chest non-tender, lungs clear, normal breath sounds, no respiratory distress Cardiovascular: normal peripheral pulses, regular rate, rhythm, no edema, no murmur Gastrointestinal: normal bowel sounds, non tender, soft, no organomegaly Neurologic/Psychiatric: dormitory maid II-XII nml as tested, alert, normal mood/affect, oriented x 3 Assessment/Plan 41 y/o female h/o B12 defncy, gastric bypass, CO , HTN, anxiety/depression p/w acute on chronic worsening weakness Acute on chronic somatic weakness - neurology consulted, input appreciated - MRI spinal column without overt pathology - PT/OT consult recommends acute rehab for improvement of independence. Neurology recommends evaluation by tertiary care - will discuss further re: inpatient transfer v. outpatient evaluation and f/u Macrocytic anemia w/ folate deficiency - daily supplementation - trend CBC qAM Transaminitis - stable from previous, h/o MONTERO w/ similar elevations previously. Trend CMP qAM HTN - w/ spike today - re-assess, continue labetolol, can add hydralazine PRN if needed Depression/anxiety - conitnue Celexa and clonazepam DVT PPX - SCD
[2016-12-07 07:43] VITALS: BP 147/99; PULSE 66; TEMP 36.8; O2SAT 97
[2016-12-07 08:00] VITALS: O2SAT 97
[2016-12-07] MEDS: FoLIC ACID INJ 1 MG in SYRINGE 9.8 ML IV SCH (08:02)
[2016-12-07] MEDS: CALCIUM 600MG + VIT D 400 IU TAB PO SCH (08:02)
[2016-12-07] MEDS: LABETALOL HCL 200 MG TAB PO SCH ×2 (08:02→21:41)
[2016-12-07] MEDS: CLONAZEPAM 0.5 MG TAB PO SCH ×3 (08:02→21:41)
[2016-12-07] MEDS: CHOLECALCIFEROL 1000 INTER.UNIT TAB PO SCH (08:03)
[2016-12-07] MEDS: IBUPROFEN 200 MG TAB PO PRN (08:04)
--- NOTE | 2016-12-07 08:20 | DIAGNOSTIC IMAGING REPORT ---
MRI CERVICAL SPINE COMBO CLINICAL HISTORY: Upper and lower extremity weakness. COMPARISON STUDY: No priors. TECHNIQUE: MRI of the cervical spine is performed utilizing various T1 and T2-weighted sequences in the axial and sagittal planes. Contrast-enhanced sequences are acquired following the IV administration of 11 cc of Gadavist. FINDINGS: Cervical spine: Vertebral body height and alignment are maintained throughout the cervical spine. Normal marrow signal intensity is preserved throughout the visualized bony structures. The atlantodental articulation appears maintained. The spinous processes are intact. No destructive osseous lesion is seen. Intervertebral discs: Minimal degenerative disc desiccation is observed. The disc spaces are preserved. Spinal cord: The cervical spinal cord is normal in morphology and signal intensity. No abnormal enhancement is identified on the postcontrast images. C2-C3: Unremarkable. C3-C4: Unremarkable. C4-C5: Unremarkable. C5-C6: Unremarkable. C6-C7: Unremarkable. C7-T1: Unremarkable. Soft tissues: The prevertebral and paraspinous soft tissues are within normal limits. Brain parenchyma: Partially imaged brain parenchyma at the skull base is normal in appearance. IMPRESSION: 1. The cervical spinal cord is normal in morphology and signal intensity. 2. There is no significant degenerative change seen. Dictated: 12/07/2016 7:37 AM Transcribed: 12/07/2016 8:20 AM [facility] Electronically signed by: Stevenson Anderson M.D. 12/07/2016 8:55 AM Dictated Date/Time: 12/07/2016 7:37 AM
--- NOTE | 2016-12-07 08:22 | DIAGNOSTIC IMAGING REPORT ---
MRI OF THE THORACIC SPINE COMBO CLINICAL HISTORY: Upper and lower extremity weakness. COMPARISON STUDY: No priors. TECHNIQUE: MRI of the thoracic spine is performed utilizing various T1 and T2-weighted sequences in the axial and sagittal planes. Contrast-enhanced sequences were acquired following the IV administration of 11 cc of Gadavist. FINDINGS: Vertebral body height and alignment are maintained throughout the thoracic spine. Normal marrow signal intensity is preserved throughout the visualized bony structures. No destructive osseous lesion is seen. The transverse and spinous processes appear intact. Intervertebral discs are normal in height and signal intensity. No large disc herniation is identified. Minimal disc bulge is seen at T11-T12 and T12-L1. The central canal is widely patent. There is no evidence of neural foraminal stenosis throughout the thoracic region. The thoracic spinal cord is normal in morphology and signal intensity. The conus medullaris terminates at the level of L1. No abnormal cord enhancement is seen on the postcontrast images. The paraspinous soft tissues are within normal limits. The lung parenchyma is grossly clear but not well assessed by MRI. IMPRESSION: Unremarkable contrast-enhanced MRI of the thoracic spine. Dictated: 12/07/2016 7:39 AM Transcribed: 12/07/2016 8:22 AM [facility] Electronically signed by: Stevenson Anderson M.D. 12/07/2016 8:32 AM Dictated Date/Time: 12/07/2016 7:39 AM
--- NOTE | 2016-12-07 08:31 | DIAGNOSTIC IMAGING REPORT ---
Brain MRI WITH AND WITHOUT CONTRAST HISTORY: Upper and lower extremity weakness R>L, upgoing plantars, b/l APD, brisk reflexes TECHNIQUE: Multiplanar multisequence MRI of the brain was performed both before and after the intravenous administration of contrast. COMPARISON STUDY: Brain MRI 11/01/2016. FINDINGS: No areas of definitive restricted diffusion to suggest acute infarction. Questionable areas of increased signal on the DWI sequences within the white matter of the posterior frontal lobes, parietal lobes and occipital lobes appears to represent T2 shine through. The white matter signal abnormality is not significantly changed compared to the prior study. The midline structures are intact. There is no mass, hematoma, or midline shift. The paranasal sinuses and mastoid air cells are clear. The major vascular flow-voids at the skull base are well-maintained. No abnormal enhancement. IMPRESSION: No change in the nearly symmetric white matter signal abnormality involving the bilateral posterior frontal lobes, parietal lobes, and occipital lobes. This is nonspecific but could be seen in the setting of a demyelinating disease such as multiple sclerosis. Additional leukodystrophies must be considered including adrenoleukodystrophy. Neurology consultation is recommended. Electronically signed by: Kyaw Gutierrez M.D. 12/07/2016 8:30 AM Dictated Date/Time: 12/07/2016 8:12 AM
--- NOTE | 2016-12-07 08:35 | DIAGNOSTIC IMAGING REPORT ---
LUMBAR SPINE MRI WITH AND WITHOUT CONTRAST HISTORY: Upper and lower extremity weakness R>L, upgoing plantars, b/l APD, brisk reflexes TECHNIQUE: Multiplanar multisequence MRI of the lumbar spine was performed both before and after the intravenous administration of contrast. COMPARISON: None. FINDINGS: For the purpose of the report the L5-S1 disc space will be located on axial image 27 of 30. No fracture or subluxation. A 1.6 cm hemangioma at L3. The conus terminates at the L1-L2 disc space level. No abnormal enhancement. Mild disc space narrowing at L5-S1. L1-L2: No significant central canal or neural foraminal narrowing. L2-L3: No significant central canal or neural foraminal narrowing. L3-L4: Small broad-based posterior disc bulge asymmetric to the right. No significant central canal or neural foraminal narrowing. L4-L5: Small broad-based posterior disc bulge asymmetric to the right with a right foraminal annular tear. No significant central canal or neural foraminal narrowing. L5-S1: No significant central canal or neural foraminal narrowing. IMPRESSION: Mild degenerative changes as described above. No abnormal enhancement. Electronically signed by: Kyaw Gutierrez M.D. 12/07/2016 8:34 AM Dictated Date/Time: 12/07/2016 8:30 AM
--- NOTE | 2016-12-07 10:59 | Neurology Progress Notes ---
Neurology Progress Note Date of Service December 07, 2016. Subjective Feels her symptoms have mildly improved this morning and can read writing easier. Gait and hand co-ordination is much unchanged. Objective Date Time Temp Pulse Resp B/P Pulse Ox O2 Delivery O2 Flow Rate FiO2 12/07/16 08:00 97 Room Air 12/07/16 07:43 36.8 66 20 147/99 97 Room Air 12/07/16 04:00 Room Air 12/07/16 00:00 Room Air 12/06/16 16:00 Room Air 12/06/16 15:16 36.9 71 18 139/95 97 Room Air Last 24 Hours Test 12/07/16 06:37 12/07/16 07:32 White Blood Count 6.28 K/uL Red Blood Count 3.29 M/uL Hemoglobin 12.5 g/dL Hematocrit 35.6 % Mean Corpuscular Volume 108.2 fL Mean Corpuscular Hemoglobin 38.0 pg Mean Corpuscular Hemoglobin Concent 35.1 g/dl RDW Standard Deviation 47.5 fL RDW Coefficient of Variation 12.0 % Platelet Count 208 K/uL Mean Platelet Volume 9.6 fL Sodium Level 140 mmol/L Potassium Level 4.1 mmol/L Chloride Level 107 mmol/L Carbon Dioxide Level 26 mmol/L Anion Gap 7.0 mmol/L Blood Urea Nitrogen 10 mg/dl Creatinine 0.89 mg/dl Est Creatinine Clear Calc Drug Dose 119.7 ml/min Estimated GFR () 94.6 Estimated GFR (Non- 81.6 BUN/Creatinine Ratio 10.9 Random Glucose 92 mg/dl Calcium Level 8.9 mg/dl Total Bilirubin 1.5 mg/dl Aspartate Amino Transf (AST/SGOT) 94 U/L Alanine Aminotransferase (ALT/SGPT) 83 U/L Alkaline Phosphatase 147 U/L Total Protein 6.9 gm/dl Albumin 3.5 gm/dl Globulin 3.4 gm/dl Albumin/Globulin Ratio 1.0 Imaging: Brain MRI WITH AND WITHOUT CONTRAST HISTORY: Upper and lower extremity weakness R>L, upgoing plantars, b/l APD, brisk reflexes TECHNIQUE: Multiplanar multisequence MRI of the brain was performed both before and after the intravenous administration of contrast. COMPARISON STUDY: Brain MRI 11/01/2016. FINDINGS: No areas of definitive restricted diffusion to suggest acute infarction. Questionable areas of increased signal on the DWI sequences within the white matter of the posterior frontal lobes, parietal lobes and occipital lobes appears to represent T2 shine through. The white matter signal abnormality is not significantly changed compared to the prior study. The midline structures are intact. There is no mass, hematoma, or midline shift. The paranasal sinuses and mastoid air cells are clear. The major vascular flow-voids at the skull base are well-maintained. No abnormal enhancement. IMPRESSION: No change in the nearly symmetric white matter signal abnormality involving the bilateral posterior frontal lobes, parietal lobes, and occipital lobes. This is nonspecific but could be seen in the setting of a demyelinating disease such as multiple sclerosis. Additional leukodystrophies must be considered including adrenoleukodystrophy. Neurology consultation is recommended. Electronically signed by: Kyaw Gutierrez M.D. 12/07/2016 8:30 AM Dictated Date/Time: 12/07/2016 8:12 AM MRI CERVICAL SPINE COMBO CLINICAL HISTORY: Upper and lower extremity weakness. COMPARISON STUDY: No priors. TECHNIQUE: MRI of the cervical spine is performed utilizing various T1 and T2-weighted sequences in the axial and sagittal planes. Contrast-enhanced sequences are acquired following the IV administration of 11 cc of Gadavist. FINDINGS: Cervical spine: Vertebral body height and alignment are maintained throughout the cervical spine. Normal marrow signal intensity is preserved throughout the visualized bony structures. The atlantodental articulation appears maintained. The spinous processes are intact. No destructive osseous lesion is seen. Intervertebral discs: Minimal degenerative disc desiccation is observed. The disc spaces are preserved. Spinal cord: The cervical spinal cord is normal in morphology and signal intensity. No abnormal enhancement is identified on the postcontrast images. C2-C3: Unremarkable. C3-C4: Unremarkable. C4-C5: Unremarkable. C5-C6: Unremarkable. C6-C7: Unremarkable. C7-T1: Unremarkable. Soft tissues: The prevertebral and paraspinous soft tissues are within normal limits. Brain parenchyma: Partially imaged brain parenchyma at the skull base is normal in appearance. IMPRESSION: 1. The cervical spinal cord is normal in morphology and signal intensity. 2. There is no significant degenerative change seen. Dictated: 12/07/2016 7:37 AM Transcribed: 12/07/2016 8:20 AM [facility] Electronically signed by: Stevenson Anderson M.D. 12/07/2016 8:55 AM Dictated Date/Time: 12/07/2016 7:37 AM MRI OF THE THORACIC SPINE COMBO CLINICAL HISTORY: Upper and lower extremity weakness. COMPARISON STUDY: No priors. TECHNIQUE: MRI of the thoracic spine is performed utilizing various T1 and T2-weighted sequences in the axial and sagittal planes. Contrast-enhanced sequences were acquired following the IV administration of 11 cc of Gadavist. FINDINGS: Vertebral body height and alignment are maintained throughout the thoracic spine. Normal marrow signal intensity is preserved throughout the visualized bony structures. No destructive osseous lesion is seen. The transverse and spinous processes appear intact. Intervertebral discs are normal in height and signal intensity. No large disc herniation is identified. Minimal disc bulge is seen at T11-T12 and T12-L1. The central canal is widely patent. There is no evidence of neural foraminal stenosis throughout the thoracic region. The thoracic spinal cord is normal in morphology and signal intensity. The conus medullaris terminates at the level of L1. No abnormal cord enhancement is seen on the postcontrast images. The paraspinous soft tissues are within normal limits. The lung parenchyma is grossly clear but not well assessed by MRI. IMPRESSION: Unremarkable contrast-enhanced MRI of the thoracic spine. Dictated: 12/07/2016 7:39 AM Transcribed: 12/07/2016 8:22 AM [facility] Electronically signed by: Stevenson Anderson M.D. 12/07/2016 8:32 AM Dictated Date/Time: 12/07/2016 7:39 AM LUMBAR SPINE MRI WITH AND WITHOUT CONTRAST HISTORY: Upper and lower extremity weakness R>L, upgoing plantars, b/l APD, brisk reflexes TECHNIQUE: Multiplanar multisequence MRI of the lumbar spine was performed both before and after the intravenous administration of contrast. COMPARISON: None. FINDINGS: For the purpose of the report the L5-S1 disc space will be located on axial image 27 of 30. No fracture or subluxation. A 1.6 cm hemangioma at L3. The conus terminates at the L1-L2 disc space level. No abnormal enhancement. Mild disc space narrowing at L5-S1. L1-L2: No significant central canal or neural foraminal narrowing. L2-L3: No significant central canal or neural foraminal narrowing. L3-L4: Small broad-based posterior disc bulge asymmetric to the right. No significant central canal or neural foraminal narrowing. L4-L5: Small broad-based posterior disc bulge asymmetric to the right with a right foraminal annular tear. No significant central canal or neural foraminal narrowing. L5-S1: No significant central canal or neural foraminal narrowing. IMPRESSION: Mild degenerative changes as described above. No abnormal enhancement. Electronically signed by: Kyaw Gutierrez M.D. 12/07/2016 8:34 AM Dictated Date/Time: 12/07/2016 8:30 AM Exam: VITAL SIGNS: were reviewed GENERAL: no acute distress, obese SKIN: Warm dry and pink, no rashes HEAD: Normocephalic and atraumatic EYES: extraocular muscles intact without nystagmus, pupils equal but dilated and reactive to light but with a rebound response to dilation despite light presence OROPHARYNX: non erythematous, clear and moist NECK: No meningismus EXTREMITIES: Warm and well perfused, no calf tenderness/swelling, no pedal edema. NEUROLOGICALLY: Awake alert and oriented to time, place and person. Visual acuity mildly diminished without field defect. Eye examination as above Upper limb bilateral strength proximally and distal muscles 5/5 Right sided hip and knee flexion 3/5 strength, elsewhere proximal and distal b/ l lower limbs 4/5. Right foot and ankle assume dystonic inverted posture with movement. Bilateral plantars upgoing. Brisk lower limb reflexes 3+ but equal bilaterally Co-ordination of upper limbs is normal. Lower limbs is effected due to power especially in her right leg. Gait continues to be ataxic Current Inpatient Medications Medications (Trade) Dose Ordered Sig/Mariah Route Start Time Stop Time Status Last Admin Dose Admin Acetaminophen (Tylenol Tab) 650 mg Q4H PRN PO 12/05/16 12:15 01/04/17 12:14 Al Hydrox/Mg Hydrox/Simethicone (Maalox Max Susp) 15 ml Q4H PRN PO 12/05/16 12:15 01/04/17 12:14 Magnesium Hydroxide (Milk Of Magnesia Susp) 30 ml Q6H PRN PO 12/05/16 12:15 01/04/17 12:14 Ondansetron HCl (Zofran Inj) 4 mg Q6H PRN IV 12/05/16 12:15 01/04/17 12:14 Calcium/Vitamin D (Caltrate Plus Tab) 1 tab DAILY PO 12/06/16 09:00 01/05/17 08:59 12/07/16 08:02 1 TAB Citalopram Hydrobromide (celeXA TAB) 20 mg HS PO 12/05/16 21:00 01/04/17 20:59 12/06/16 20:10 20 MG Clonazepam (Klonopin Tab) 0.25 mg TID PO 12/05/16 14:00 01/04/17 13:59 12/07/16 08:02 0.25 MG Miscellaneous Information (Order Awaiting Action) 1 ea QS N/A 12/05/16 16:00 01/04/17 15:59 12/06/16 08:00 1 EA Labetalol HCl (Normodyne Tab) 200 mg BID PO 12/05/16 21:00 01/04/17 20:59 12/07/16 08:02 200 MG Cholecalciferol (Vitamin D Tab) 1,000 inter.unit DAILY PO 12/06/16 09:00 01/05/17 08:59 12/07/16 08:03 1,000 INTER.UNIT Polyethylene (Miralax Powder Packet) 17 gm DAILY PRN PO 12/05/16 12:45 01/04/17 12:14 Miscellaneous 1 ea 1 ea PRN PRN N/A 12/05/16 13:45 12/05/17 13:44 Folic Acid/Syringe (Folvite Inj/ Syringe) 10 ml @ 5 mls/min Q24H IV 12/06/16 09:00 01/05/17 08:59 12/07/16 08:02 5 MLS/MIN Ibuprofen (Advil Tab) 400 mg Q6H PRN PO 12/06/16 14:15 01/05/17 14:14 12/07/16 08:04 400 MG Gadobutrol (Gadavist) 11 mmol UD PRN IV 12/06/16 23:00 12/10/16 22:59 Impression 1) 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 Hx of pernicious anemia. Other nutrient deficiencies, mitochondrial disorders and leukodystrophies not excluded and recommend outpatient referral to [facility] regarding this. Noted HIV added to labs . 2) Unclear etiology of deterioration over the last few months but given previous gastric bypass and Hx liver failure in 2013 (workup only showed MONTERO at that time) and subacute deterioration with concurrent rise in transaminitis, bilirubin and daily alcohol use would recommend gastroenterology input. 3) Bilateral optic neuropathy - unknown significance and recommend ophthalmology follow up Plan She can be discharged from a neurological point of view and Dr Schultz will follow up in clinic as previously arranged in December. Will get previous records and discuss whether a repeat lumbar puncture is required at that point. Resident Physician Supervision Note: I was present with Dr. Dr. Mccoy during the history and exam. I discussed the case with the resident and agree with the findings and plan as documented in the note. 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 She has completed the requested up-to -date imaging of the entire neural axis including MRI of the brain and entire spinal column. No spinal cord abnormalities observed. No imaging to support the possibility of combined systems degeneration. Stability of the previously observed brain demyelination appreciated. Patient also appears to have bilateral pupillary motility abnormalities possibly due to incomplete optic neuropathies. Her presentation could be consistent with an adult onset leukodystrophy. Yet, her reported history of pernicious anemia may also be contributory as well as the reported history of cardiac arrest. Mitochondrial disorders remain in the differential. The imaging is not really suggestive or typical for multiple sclerosis. She reports having a lumbar puncture during an extensive workup while she was in [place] several years ago. She was told the results of this test were unremarkable. The actual test results are not available at this time. Given the complexity of this patient's case I continue to believe she should be evaluated at [facility] or another similar tertiary center for an additional opinion on her chronic neurological condition. It is not really clear if her condition is progressive. Additional outpatient evaluations with ophthalmology would be useful. However, she may also need a neuro- ophthalmologic assessment which would need to be done at a tertiary center. No further recommendations at this time. She may follow-up with me locally as an outpatient. Documented By: Austyn Schultz Resident Tracking Resident Involvement: Resident Care Provided Care Provided: Adult [facility]
[2016-12-07 15:57] VITALS: BP_SYST 177; BP_SYST 189; BP_DIAS 105; BP_DIAS 122; PULSE 70; TEMP 36.8; O2SAT 99
[2016-12-07 17:58] VITALS: BP 144/95
[2016-12-07] MEDS: CITALOPRAM 20 MG TAB PO SCH (21:40)
[2016-12-08 00:10] VITALS: BP 146/96; PULSE 72; TEMP 36.8; O2SAT 97
[2016-12-08 06:09] LABS: HEMATOCRIT 34.9 % (37-47); MEAN CORPUSCULAR HEMOGLOBIN 37.2 pg (25-34); MEAN CORPUSCULAR HGB CONC 34.4 g/dl (32-36); MEAN PLATELET VOLUME 9.6 fL (7.4-10.4); PLATELET COUNT 201 K/uL (130-400); RED BLOOD COUNT 3.23 M/uL (4.2-5.4); WHITE BLOOD COUNT 6.06 K/uL (4.8-10.8)
[2016-12-08 06:44] LABS: BUN/CREATININE RATIO 14.7 (10-20); CALCIUM 8.8 mg/dl (8.5-10.1); CREATININE 0.8 mg/dl (0.60-1.20); POTASSIUM 3.9 mmol/L (3.5-5.1)
--- NOTE | 2016-12-08 07:33 | Discharge Instructions ---
Discharge Instructions Date of Service December 08, 2016. Admission Reason for Admission: Ambulatory Dysfunction, Weakness Activity Recommendations . Additional Information Patient informed of condition: Yes Current Hospital Diet Patient's current hospital diet: Regular Diet Medical Emergencies . Who to Call and When: Medical Emergencies: If at any time you feel your situation is an emergency, please call 911 immediately. . Non-Emergent Contact . . "Provider Documentation" section prepared by Cynthia Murrieta. . Resident Tracking Resident Involvement: Resident Care Provided Care Provided: Adult Hospital Medicine Resident Tracking Resident Involvement: Resident Care Provided Care Provided: Adult Hospital Medicine
[2016-12-08 07:38] VITALS: BP 132/92; PULSE 108; TEMP 36.9; O2SAT 97
[2016-12-08 07:46] VITALS: BP 132/92; PULSE 72; TEMP 36.9; O2SAT 94
[2016-12-08] MEDS: CLONAZEPAM 0.5 MG TAB PO SCH (07:52)
[2016-12-08] MEDS: FoLIC ACID INJ 1 MG in SYRINGE 9.8 ML IV SCH (07:52)
[2016-12-08] MEDS: CHOLECALCIFEROL 1000 INTER.UNIT TAB PO SCH (07:53)
[2016-12-08] MEDS: CALCIUM 600MG + VIT D 400 IU TAB PO SCH (07:53)
[2016-12-08] MEDS: LABETALOL HCL 200 MG TAB PO SCH (07:53)
--- NOTE | 2016-12-08 19:19 | Discharge Summary ---
Discharge Summary Date of Service December 08, 2016. Discharge Summary Admission Date: December 05, 2016 at 12:30 Discharge Date: December 08, 2016 Discharge Disposition: Acute care facility Principal Diagnosis: Generalized weakness Problems/Secondary Diagnoses: Pernicious anemia, gastric bypass Immunizations: Have You Had Influenza Vaccine: Yes History of Tetanus Vaccine?: Unknown History of Pneumococcal: Unknown History of Hepatitis B Vaccine: Unknown Consultations: Neurology, Dr. Schultz Medication Reconciliation Continued Medications: Calcium/Vitamin D (Os-Philipp 500 Plus D) Tab 1 TAB PO DAILY, TAB Cholecalciferol (D 1000) 1,000 Unit Cap 1000 UNITS PO DAILY Citalopram (Citalopram Hydrobromide) 20 Mg Tab 20 MG PO HS, #30 Clonazepam (Klonopin) 0.5 Mg Tab 0.25 MG PO TID, #45 Ibuprofen (Advil) 200 Mg Tab 400 MG PO UD, TAB Labetalol HCl (Labetalol HCl) 200 Mg Tab 200 MG PO BID Methylcobalamin (Methyl B-12) 1,000 Mcg Dean 2500 MCG PO DAILY Discharge Exam Pt seen and examined at bedside. No acute events overnight. Generalized weakness has been stable since marginal improvement of accommodation yesterday. Still unable ambulate without walker and assist. Reports no sensory changes, BROTHERS , swallowing difficulty, coughing, fever. Review of Systems: Constitutional: + fatigue, + weakness, No chills, No fever Eyes: No diplopia, No eye pain, No worsening of vision ENT: No hearing loss, No trouble swallowing, No unusual epistaxis Respiratory: No cough, No shortness of breath, No sputum, No wheezing Cardiovascular: No chest pain, No edema, No palpitations Abdomen: No constipation, No diarrhea, No nausea, No pain, No vomiting Neurologic: + balance problems, + weakness, No memory loss, No numbness/ tingling Physical Exam: General Appearance: WD/WN, no apparent distress Eyes: PERRL, EOMI Respiratory/Chest: chest non-tender, lungs clear, normal breath sounds, no respiratory distress Cardiovascular: regular rate, rhythm, no edema, no gallop, normal peripheral pulses Abdomen / GI: normal bowel sounds, non tender, soft, no organomegaly Neurologic/Psychiatric: personnel psychologist II-XII nml as tested, no motor/sensory deficits , alert, normal mood/affect, oriented x 3 Hospital Course 41 y/o female h/o B12 defncy, gastric bypass, cardiac arrest , HTN, anxiety/ depression p/w acute on chronic worsening weakness Acute on chronic somatic weakness - neurology consulted, input appreciated - MRI spinal column without overt pathology - PT/OT consult recommends acute rehab for improvement of independence. Neurology recommends evaluation by tertiary care - transfer in progress w/ accepting physician noted at [facility] Macrocytic anemia w/ folate deficiency - daily supplementation - trended CBC qAM Transaminitis - stable from previous, h/o MONTERO w/ similar elevations previously. Trended CMP qAM HTN - w/ spike today - continue labetolol, can add hydralazine PRN if needed Depression/anxiety - conitnue Celexa and clonazepam DVT PPX - SCD while at [facility] Total Time Spent: Less than 30 minutes This includes examination of the patient, discharge planning, medication reconciliation, and communication with other providers. Discharge Instructions Please refer to the electronic Patient Visit Report (Discharge Instructions) for additional information.
== END 2016-12-08 09:29 | disposition short-term general hospital (02) ==
LOC: ENRESERVTM → ENRESERVDT → C.EDB 09:18 → C.MS2W 12:30 → EDBEDREQ 12:34
PROVIDERS: ADMIT Family Medicine; ATTEND Family Medicine
DX: R53.1 Weakness (principal); D51.0 Vitamin B12 deficiency anemia due to intrinsic factor deficiency; H46.9 Unspecified optic neuritis; I10 Essential (primary) hypertension; F32.9 Major depressive disorder, single episode, unspecified; R26.9 Unspecified abnormalities of gait and mobility; I35.0 Nonrheumatic aortic (valve) stenosis; I25.2 Old myocardial infarction; Z98.84 Bariatric surgery status; Z82.49 Family history of ischemic heart disease and other diseases of the circulatory system; Z83.3 Family history of diabetes mellitus

== ENCOUNTER → 2017-03-12 | Outpatient (CLI) | payer OTHER ==
[~2017-03-12] MED LIST changes: +CALC500C70 PO; -CETI10TA84 PO; +CHOL100041 PO; +CLON0.5T3 PO; +CLX/20 PO; -LBT/300 PO; +LBT200 PO
--- NOTE | 2017-03-12 16:10 | DIAGNOSTIC IMAGING REPORT ---
LEFT ANKLE MIN 3 VIEWS ROUTINE CLINICAL HISTORY: Left ankle pain status post trauma COMPARISON: None. DISCUSSION: There is acute oblique fracture of the distal fibula demonstrating 2.5 mm of maximal displacement. The ankle mortise appears intact on these nonstress views. No tibial fractures are visualized. There is Achilles insertional spurring. There is lateral soft tissue swelling. IMPRESSION: Acute oblique fracture of the distal fibula with 2.5 mm of maximal displacement. Electronically signed by: Manuel Victoria M.D. 03/12/2017 4:08 PM Dictated Date/Time: 03/12/2017 4:07 PM
== END | disposition home or self-care (01) ==
LOC: C.RAD 15:18
PROVIDERS: ATTEND Family Medicine
DX: M25.572 Pain in left ankle and joints of left foot (principal)

== ENCOUNTER → 2017-03-26 | Outpatient (CLI) | payer OTHER | END | disposition home or self-care (01) | LOC: C.RDSM 12:19 | PROVIDERS: ATTEND Orthopaedic Surgery Sports Medicine | DX: S82.409A Unspecified fracture of shaft of unspecified fibula, initial encounter for closed fracture (principal); X58.XXXA Exposure to other specified factors, initial encounter ==

== ENCOUNTER → 2017-04-03 | Outpatient (CLI) | payer OTHER | END | disposition home or self-care (01) | LOC: C.RDSM 13:00 | PROVIDERS: ATTEND Orthopaedic Surgery Sports Medicine | DX: M67.431 Ganglion, right wrist (principal); Z09 Encounter for follow-up examination after completed treatment for conditions other than malignant neoplasm ==

== ENCOUNTER → 2017-04-24 | Outpatient (CLI) | payer OTHER | END | disposition home or self-care (01) | LOC: C.RDSM 12:06 | PROVIDERS: ATTEND Orthopaedic Surgery Sports Medicine | DX: Z09 Encounter for follow-up examination after completed treatment for conditions other than malignant neoplasm (principal) ==

== ENCOUNTER → 2017-07-17 | Outpatient (CLI) | payer OTHER | END | disposition home or self-care (01) | LOC: C.RDSM 10:15 | PROVIDERS: ATTEND Orthopaedic Surgery Sports Medicine | DX: Z09 Encounter for follow-up examination after completed treatment for conditions other than malignant neoplasm (principal); M79.671 Pain in right foot ==

== ENCOUNTER → 2017-07-29 | Outpatient (CLI) | payer OTHER | END | disposition home or self-care (01) | LOC: C.MAMM 09:24 | PROVIDERS: ATTEND Orthopaedic Surgery Sports Medicine | DX: M25.579 Pain in unspecified ankle and joints of unspecified foot (principal); T07.XXXA Unspecified multiple injuries, initial encounter; X58.XXXA Exposure to other specified factors, initial encounter ==